=== PATIENT | female | born 1935 | race Caucasian/White ===

== ENCOUNTER 2019-07-06 15:48 | Emergency (ER) | payer OTHER ==
[~2019-07-06] VITALS: Ht 152.4 cm; Wt 59.4 kg
[2019-07-06] MEDS ORDERED: ZOLOFT50 MG (16:22)
[2019-07-06] MEDS ORDERED: GLIMEPIRIDE1 MG (16:23)
[2019-07-06] MEDS ORDERED: SIMVASTATIN5 MG (16:23)
[2019-07-06] MEDS ORDERED: ISOSORBIDE MONO60 MG (16:23)
[2019-07-06] MEDS ORDERED: LOTREL 5-10 MG1 CAP (16:23)
[2019-07-06] MEDS ORDERED: NEURONTIN300 MG (16:23)
[2019-07-06] MEDS ORDERED: MEDROLPACK PO (21:16)
[2019-07-06] MEDS ORDERED: BUDESONIDE0.5 MG/2 M IH (21:16)
[2019-07-06] MEDS ORDERED: TESSALON PERLE100 M1 PO (21:16)
[2019-07-06] MEDS ORDERED: MUCINEX DM ER1 EAC1 PO (21:16)
[2019-07-06] MEDS ORDERED: XOPENEX0.63 MG/3 IH (21:16)
== END 2019-07-06 21:34 | disposition home or self-care (01) ==
LOC: ER 15:48
DX: J20.9 Acute bronchitis, unspecified (principal)